=== PATIENT | female | born 1940 | race Caucasian/White ===

== ENCOUNTER 2016-07-24 10:05 | Inpatient (IN) | payer MEDICARE ==
[~2016-07-24] VITALS: Ht 162.6 cm; Wt 80.0 kg
[~2016-07-24 10:05] MED LIST: BUPIVACAINE/PF-EPI 0.25% 1:200K ONE
[2016-07-24 11:05] VITALS: BP 145/65
[2016-07-24] MEDS ORDERED: LACTATED RINGERS 1,000 ML IV SCH (11:14)
[2016-07-24] MEDS ORDERED: LISI40TA PO (11:16)
[2016-07-24] MEDS ORDERED: stool softener PO (11:16)
[2016-07-24] MEDS ORDERED: baclofen PO (11:16)
[2016-07-24] MEDS ORDERED: probiotic PO (11:16)
[2016-07-24] MEDS ORDERED: FENTANYL PF 250 MCG/5ML ONE (12:33)
[2016-07-24] MEDS ORDERED: GLYCOPYRROLATE 0.2MG/1ML ONE (13:23)
[2016-07-24] MEDS ORDERED: ROCURONIUM 10 MG/ML ONE (13:23)
[2016-07-24] MEDS ORDERED: PROPOFOL 10 MG/ML, 20ML ONE (13:23)
[2016-07-24] MEDS ORDERED: CEFAZOLIN 1,000 MG ONE (13:23)
[2016-07-24] MEDS ORDERED: ONDANSETRON 2MG/ML, 2ML ONE (13:23)
[2016-07-24] MEDS ORDERED: NEOSTIGMINE 1 MG/ML, 10ML ONE (13:23)
[2016-07-24] MEDS ORDERED: DEXAMETHASONE 4 MG/ML, 1ML ONE (13:23)
[2016-07-24] MEDS: LACTATED RINGERS 1,000 ML IV SCH (14:52)
[2016-07-24] MEDS ORDERED: LORazepam 2 MG/ML, 1ML IV PRN (15:00)
[2016-07-24] MEDS ORDERED: hydrALAzine 20 MG/ML, 1ML IV PRN ×3 (15:00→17:00)
[2016-07-24] MEDS ORDERED: ONDANSETRON 2MG/ML, 2ML IVPush PRN ×3 (15:00→17:00)
[2016-07-24] MEDS ORDERED: PROMETHAZINE 12.5 MG SUPP PR PRN (15:00)
[2016-07-24] MEDS ORDERED: ENALAPRILAT 1.25 MG/ML, 2ML IV PRN (15:00)
[2016-07-24] MEDS ORDERED: DIPHENHYDRAMINE 50 MG/ML, 1ML IV PRN (15:00)
[2016-07-24] MEDS ORDERED: PROMETHAZINE 25 MG/ML, 1ML IM PRN (15:00)
[2016-07-24] MEDS: HYDROmorphone 1 MG/ML, 1ML IV PRN ×2 (15:10→15:19)
[2016-07-24] MEDS ORDERED: LABETALOL 5MG/ML, 20ML ONE (15:16)
[2016-07-24] MEDS ORDERED: HYDROmorphone 1 MG/ML, 1ML ONE (15:16)
[2016-07-24] MEDS ORDERED: hydrALAzine 20 MG/ML, 1ML ONE (15:16)
[2016-07-24] MEDS ORDERED: METOCLOPRAMIDE 5 MG/ML, 2ML IV PRN ×2 (15:30→17:00)
[2016-07-24] MEDS ORDERED: PROMETHAZINE 25 MG/ML, 1ML IV PRN ×2 (15:30→17:00)
[2016-07-24] MEDS ORDERED: LABETALOL 5MG/ML, 20ML IV PRN ×2 (15:30→17:00)
[2016-07-24] MEDS ORDERED: ALBUTEROL SULFATE 2.5 MG/3 ML NPPB PRN ×2 (15:30→17:00)
[2016-07-24] MEDS ORDERED: MEPERIDINE/PF 25MG/0.5ML IVPush PRN ×2 (15:30→17:00)
[2016-07-24] MEDS ORDERED: FENTANYL PF 100 MCG/2ML IV PRN ×2 (15:30→17:00)
[2016-07-24] MEDS ORDERED: HYDROmorphone 1 MG/ML, 1ML IV PRN (17:00)
[2016-07-24] MEDS ORDERED: HYDROcodone/APAP 7.5-325MG/15ML UDC PO PRN (17:00)
[2016-07-24] MEDS: CEFOTETAN PMX 2GM/50ML 50 ML IVPB SCH (17:13)
[2016-07-24 23:45] VITALS: BP 132/54
[2016-07-25] MEDS: LACTATED RINGERS 1,000 ML IV SCH ×3 (04:00→21:29)
[2016-07-25 04:10] VITALS: BP 146/60
[2016-07-25] MEDS: CEFOTETAN PMX 2GM/50ML 50 ML IVPB SCH (04:55)
[2016-07-25 07:45] VITALS: BP 139/51
[2016-07-25] MEDS: ENOXAPARIN 40 MG/0.4 ML SQ SCH (09:07)
[2016-07-25] MEDS: PANTOPRAZOLE 40 MG IV IVPush SCH (09:07)
[2016-07-25 12:50] VITALS: BP 160/67
[2016-07-25] MEDS: MORPHINE SULFATE 4 MG/ML, 1ML IV PRN ×4 (16:00→20:34)
[2016-07-25] MEDS ORDERED: ENOXAPARIN 40 MG/0.4 ML SQ SCH (17:00)
[2016-07-25 19:39] VITALS: BP 152/54
[2016-07-26 02:22] VITALS: BP 160/65
[2016-07-26] MEDS: LACTATED RINGERS 1,000 ML IV SCH ×3 (05:50→19:40)
[2016-07-26 06:47] VITALS: BP 158/73
[2016-07-26] MEDS: ENOXAPARIN 40 MG/0.4 ML SQ SCH (09:44)
[2016-07-26] MEDS: PANTOPRAZOLE 40 MG IV IVPush SCH (09:44)
[2016-07-26 13:34] VITALS: BP 145/70
[2016-07-26 19:32] VITALS: BP_SYST 154; BP_SYST 164; BP_DIAS 65
[2016-07-27 00:54] VITALS: BP 158/74
[2016-07-27] MEDS: LACTATED RINGERS 1,000 ML IV SCH (03:27)
[2016-07-27 07:55] VITALS: BP 174/67
[2016-07-27 08:58] VITALS: BP 149/70
[2016-07-27] MEDS: PANTOPRAZOLE 40 MG IV IVPush SCH (08:59)
[2016-07-27] MEDS: ENOXAPARIN 40 MG/0.4 ML SQ SCH (09:00)
[2016-07-27] MEDS ORDERED: OMEP20TA2 PO (10:59)
[2016-07-27] MEDS ORDERED: HYDR-3241 PO (11:00)
[2016-07-27 12:33] VITALS: BP 150/76
[2016-07-27 13:03] VITALS: BP 136/57
== END 2016-07-27 13:09 | disposition home or self-care (01) | DRG 357 ==
LOC: ORIP 10:16 → 4NOR 16:06
PROVIDERS: ADMIT Thoracic Surgery (Cardiothoracic Vascular Surgery); ATTEND Thoracic Surgery (Cardiothoracic Vascular Surgery)
PROC: 0DBS4ZZ (ICD-10-PCS; 2016-07-24)
PROC: 07BD4ZX Excision of Aortic Lymphatic, Percutaneous Endoscopic Approach, Diagnostic (ICD-10-PCS; 2016-07-24)
PROC: 0DB64ZZ Excision of Stomach, Percutaneous Endoscopic Approach (ICD-10-PCS; principal; 2016-07-24 14:00)
DX: C16.9 Malignant neoplasm of stomach, unspecified (principal); J95.89 Other postprocedural complications and disorders of respiratory system, not elsewhere classified; K25.9 Gastric ulcer, unspecified as acute or chronic, without hemorrhage or perforation; F17.210 Nicotine dependence, cigarettes, uncomplicated; R09.02 Hypoxemia; M19.90 Unspecified osteoarthritis, unspecified site; Z90.49 Acquired absence of other specified parts of digestive tract; Z90.89 Acquired absence of other organs; Z98.51 Tubal ligation status; Z90.10 Acquired absence of unspecified breast and nipple; Z85.3 Personal history of malignant neoplasm of breast; Z88.1 Allergy status to other antibiotic agents; Z80.0 Family history of malignant neoplasm of digestive organs
CPT/HCPCS: 36415; 82565; 88305; 88309; 93005; J0690; J1100; J1170; J1650; J2405; J2704; J2710; J3010; J3490; C9113; J0360; J7120; S0074

== ENCOUNTER → 2016-08-01 | Outpatient (CLI) | payer MEDICARE ==
[~2016-08-01] MED LIST changes: +ALBUTEROL SULFATE 2.5 MG/3 ML NPPB PRN; -BUPIVACAINE/PF-EPI 0.25% 1:200K ONE; +FENTANYL PF 100 MCG/2ML IV PRN; +HYDR-3241 PO; +HYDROcodone/APAP 7.5-325MG/15ML UDC PO PRN; +HYDROmorphone 1 MG/ML, 1ML IV PRN; +LABETALOL 5MG/ML, 20ML IV PRN; +LISI40TA PO; +MEPERIDINE/PF 25MG/0.5ML IVPush PRN; +METOCLOPRAMIDE 5 MG/ML, 2ML IV PRN; +OMEP20TA2 PO; +ONDANSETRON 2MG/ML, 2ML IVPush PRN; +PROMETHAZINE 25 MG/ML, 1ML IV PRN; +baclofen PO; +hydrALAzine 20 MG/ML, 1ML IV PRN; +probiotic PO; +stool softener PO
== END | disposition home or self-care (01) ==
LOC: PETCFH 08:07
PROVIDERS: ATTEND Thoracic Surgery (Cardiothoracic Vascular Surgery)
DX: Z02.9 Encounter for administrative examinations, unspecified (principal)

== ENCOUNTER 2017-10-22 02:45 | Observation (INO) | payer MEDICARE ==
[~2017-10-22] VITALS: Ht 163.8 cm; Wt 77.4 kg
[~2017-10-22 02:45] MED LIST changes: -ALBUTEROL SULFATE 2.5 MG/3 ML NPPB PRN; -FENTANYL PF 100 MCG/2ML IV PRN; -HYDROcodone/APAP 7.5-325MG/15ML UDC PO PRN; -HYDROmorphone 1 MG/ML, 1ML IV PRN; -LABETALOL 5MG/ML, 20ML IV PRN; -MEPERIDINE/PF 25MG/0.5ML IVPush PRN; -METOCLOPRAMIDE 5 MG/ML, 2ML IV PRN; -OMEP20TA2 PO; +OMEP20TA9 PO; -ONDANSETRON 2MG/ML, 2ML IVPush PRN; -PROMETHAZINE 25 MG/ML, 1ML IV PRN; -hydrALAzine 20 MG/ML, 1ML IV PRN
[2017-10-22] MEDS ORDERED: PANTOPRAZOLE 80 MG in SODIUM CHLORIDE 0.9% 100 ML IV SCH (02:49)
[2017-10-22] MEDS ORDERED: TORS5TAB4 PO (02:59)
[2017-10-22] MEDS ORDERED: DOCU100C33 PO (02:59)
[2017-10-22] MEDS ORDERED: ASPI-496 PO (02:59)
[2017-10-22] MEDS ORDERED: VITA1TAB19 PO (02:59)
[2017-10-22] MEDS ORDERED: HYDR-882 PO (02:59)
[2017-10-22] MEDS ORDERED: SODIUM CHLORIDE FLUSH 10ML SYR IVF ONE (03:00)
[2017-10-22] MEDS ORDERED: ONDANSETRON 2MG/ML, 2ML IVPush ONE (03:00)
[2017-10-22] MEDS ORDERED: PANTOPRAZOLE 40 MG IV IVPush ONE (03:00)
[2017-10-22 03:16] LABS: MEAN CORPUSCULAR HGB CONC 34.6 g/dL (32.4-35.8); MEAN CORPUSCULAR VOLUME 92.5 fL (80-100); MEAN PLATELET VOLUME 8.6 fL (7.4-10.4); PLATELET COUNT 301 x10^3/uL (130-400); RED BLOOD COUNT 4.36 x10^6/uL (3.82-5.3); RED CELL DISTRIBUTION WIDTH 13.1 % (9.6-15.2)
[2017-10-22 03:29] LABS: ALANINE AMINOTRANSFERASE 28 U/L (12-78); ALBUMIN 3.2 g/dL (3.4-5.0); ANION GAP 6 mmol/L (5-15); CALCIUM 8.9 mg/dL (8.5-10.1); CHLORIDE 106 mmol/L (98-107); CREATININE 1.55 mg/dL (0.55-1.02)
[2017-10-22 03:31] LABS: ALKALINE PHOSPHATASE 124 U/L (45-117); BILIRUBIN,TOTAL 0.2 mg/dL (0.2-1.0); TOTAL PROTEIN 7.6 g/dL (6.4-8.2)
[2017-10-22 03:41] LABS: INTERNATIONAL NORMALIZED RATIO 0.97 (0.93-1.1)
[2017-10-22 03:51] LABS: MD YES
[2017-10-22 03:55] LABS: <RBC MORPHOLOGY> NORMAL; BANDS%(MANUAL) 3 % (0-7); BASOS#(MANUAL) 0.17 x10^3/uL (0-0.1); BASOS% (MANUAL) 1 % (0-1); LYMPH#(MANUAL) 1.33 x10^3/uL (1-3.4); LYMPHS% (MANUAL) 8 % (22-44); MONOS#(MANUAL) 0.66 x10^3/uL (0.3-2.7); MONOS% (MANUAL) 4 % (2-9); SEG#(MANUAL) 13.94 x10^3/uL (1.8-6.8); SEGS% (MANUAL) 84 % (42-75)
[2017-10-22 03:56] LABS: <PLATELET ESTIMATE> ADEQUATE; <PLT MORPHOLOGY> NORMAL PLT MORPH
[2017-10-22] MEDS ORDERED: SODIUM CHLORIDE 0.9% 1,000ML IVBOLUS ONE (04:00)
[2017-10-22] MEDS ORDERED: ONDANSETRON ODT 4 MG PO ONE (04:00)
[2017-10-22] MEDS ORDERED: OMNIPAQUE 350 MG/ML, 100ML BOTTLE ONE (04:42)
[2017-10-22 06:00] VITALS: BP 120/70
[2017-10-22 07:20] VITALS: BP 104/61
[2017-10-22] MEDS ORDERED: SODIUM CHLORIDE 0.9% 1,000 ML IV SCH (08:49)
[2017-10-22] MEDS ORDERED: ACETAMINOPHEN 325 MG TABLET PO PRN (09:00)
[2017-10-22] MEDS ORDERED: ONDANSETRON 2MG/ML, 2ML IVPush PRN (09:00)
[2017-10-22 13:30] VITALS: BP 98/63
[2017-10-22 15:21] LABS: ANION GAP 9 mmol/L (5-15); CALCIUM 8.7 mg/dL (8.5-10.1); CHLORIDE 108 mmol/L (98-107)
[2017-10-22 15:22] LABS: CREATININE 1.21 mg/dL (0.55-1.02)
[2017-10-23] MEDS ORDERED: MULTIVITS,STRESS FORMULA 1 TABLET PO SCH (09:00)
== END 2017-10-22 18:30 | disposition home or self-care (01) ==
LOC: ED 04:55 → EDIP 04:58 → INTOOBSV 04:58 → 3NE 05:25
PROVIDERS: ADMIT Hospitalist; ATTEND Hospitalist
DX: T62.91XA Toxic effect of unspecified noxious substance eaten as food, accidental (unintentional), initial encounter (principal); K92.0 Hematemesis; R11.2 Nausea with vomiting, unspecified; F17.210 Nicotine dependence, cigarettes, uncomplicated; I12.9 Hypertensive chronic kidney disease with stage 1 through stage 4 chronic kidney disease, or unspecified chronic kidney disease; N18.9 Chronic kidney disease, unspecified; N17.9 Acute kidney failure, unspecified; N26.1 Atrophy of kidney (terminal); I95.9 Hypotension, unspecified; Z85.3 Personal history of malignant neoplasm of breast; Z85.028 Personal history of other malignant neoplasm of stomach; Y92.89 Other specified places as the place of occurrence of the external cause
CPT/HCPCS: 36415; 74177; 80048; 80053; 83690; 85025; 85610; 85730; 86850; 86900; 93005; 96365; 96366; 96375; 97161; 97165; 99285; C9113; G0378; J7030; Q9967